=== PATIENT | female | born 1960 | race Caucasian/White ===

== ENCOUNTER 2018-01-30 14:18 | Inpatient (IN) | payer OTHER ==
[~2018-01-30] VITALS: Ht 172.7 cm; Wt 65.8 kg
[~2018-01-30 14:18] MED LIST: 'XANAX1 MG PO; BUSPAR15 MG PO; CLONAZEPAM1 MG PO; IBU800 M1 PO; IBU800 MG PO; KLONOPIN0.5 MG PO; MIRTAZAPINE15 M2 PO; OXYCODONE HCL10 M1 PO; OXYCODONE5 M1 PO; RANITIDINE HCL150 M1 PO; SEROQUEL200 MG PO; VITAMIN D50000 I3 PO; ZANTAC 150150 MG PO; ZOLOFT100 MG PO; ZOLOFT50 MG PO; ZYPREXA2.5 MG PO; ZYPREXA5 M1 PO
[2018-01-30 14:19] VITALS: BP 140/96
[2018-01-30 14:55] LABS: BASO % 0.4 % (0.0-1.0); EOS # 0.2 10*3/uL (0.0-0.4); HEMATOCRIT 47.6 % (37.0-47.0); HEMOGLOBIN 15.5 g/dl (12.0-16.0); LYMPH # 2.1 10*3/uL (1.3-4.4); MEAN CELL VOLUME 96.6 fl (81.0-99.0); MEAN CORPUSCULAR HGB 31.4 pg (27.0-31.0); MEAN CORPUSCULAR HGB CONC 32.6 g/dl (33.0-37.0); MONO # 0.6 10*3/uL (0.1-1.0); NEUT # 5.1 10*3/uL (2.3-7.9); NEUT % 64.2 % (47.0-73.0); PLATELET COUNT AUTOMATED 287 10*3/uL (130-400); RED BLOOD COUNT 4.93 10*6/uL (4.10-5.10); RED CELL DISTRI WIDTH 13.3 % (0-14.5); WHITE BLOOD COUNT 7.9 10*3/uL (4.8-10.8)
[2018-01-30 15:00] LABS: BILIRUBIN NEGATIVE (NEGATIVE); BLOOD NEGATIVE (NEGATIVE); CLARITY CLEAR (CLEAR); COLOR YELLOW (YELLOW); GLUCOSE NEGATIVE (NEGATIVE); KETONE NEGATIVE (NEGATIVE); LEUKO ESTERASE NEGATIVE (NEGATIVE); NITRITE NEGATIVE (NEGATIVE); SPECIFIC GRAVITY >= 1.030 (1.005-1.030); UROBILINOGEN 0.2 E.U./dl (0.2-1.0)
[2018-01-30 15:07] LABS: URINE AMPHETAMINES < 1000 (1000ng/ml); URINE BARBITURATES < 200 (200ng/ml); URINE BENZODIAZEPINES > 200 (200ng/ml); URINE CANNABINOIDS (THC) > 50 (50ng/ml); URINE COCAINE < 300 (300ng/ml); URINE METHADONE < 300 (300ng/ml); URINE OPIATES > 300 (300ng/ml)
[2018-01-30 15:08] LABS: ALBUMIN 4.3 gm/dl (3.1-4.5); ALKALINE PHOSPHATASE 93 U/L (45-117); BUN 12 mg/dl (7-24); CHLORIDE 107 mmol/L (98-107); CREATININE 1.09 mg/dL (0.55-1.02); POTASSIUM 3.4 mmol/L (3.5-5.1); SGOT/AST 12 IU/L (3-35); SGPT/ALT 16 U/L (12-78); SODIUM 142 mmol/L (136-145); TOTAL PROTEIN 7.9 gm/dL (6.4-8.2)
[2018-01-30 15:18] LABS: ETHYL ALCOHOL < 3.0 mg/dl (<3)
[2018-01-30 15:18] LABS: URINE PHENCYCLIDINE < 25 (25ng/ml)
[2018-01-30 15:24] LABS: CALCIUM OXALATE CRYSTALS 1+
[2018-01-30 16:00] VITALS: BP 103/52
[2018-01-30 20:00] VITALS: BP 94/57
[2018-01-31] VITALS: BP 104/56
[2018-01-31 07:49] VITALS: BP 90/52
== END 2018-01-31 11:12 | disposition home or self-care (01) | DRG 897 ==
LOC: ED 14:18 → EDHOLD 14:49 → 5E 14:49
PROVIDERS: Nurse Practitioner Family
DX: F11.23 Opioid dependence with withdrawal (principal); F13.20 Sedative, hypnotic or anxiolytic dependence, uncomplicated; F10.10 Alcohol abuse, uncomplicated; F41.9 Anxiety disorder, unspecified; G89.29 Other chronic pain; E87.6 Hypokalemia; F41.0 Panic disorder [episodic paroxysmal anxiety]; M54.9 Dorsalgia, unspecified; F17.210 Nicotine dependence, cigarettes, uncomplicated; F32.9 Major depressive disorder, single episode, unspecified; K21.9 Gastro-esophageal reflux disease without esophagitis; Z79.899 Other long term (current) drug therapy; Z71.6 Tobacco abuse counseling; Z82.49 Family history of ischemic heart disease and other diseases of the circulatory system; Z81.1 Family history of alcohol abuse and dependence; Z80.9 Family history of malignant neoplasm, unspecified; Z88.0 Allergy status to penicillin

== ENCOUNTER → 2018-03-09 | Day surgery (SDC) | payer OTHER ==
[2018-03-09] VITALS (8 sets, daily range): BP systolic 105–132; BP diastolic 31–73
[~2018-03-09] VITALS: Ht 172.7 cm; Wt 65.8 kg
[~2018-03-09] MED LIST changes: +ADVIL200 M1 PO; +DOXYCYCLINE100 M3 PO; +NAPROSYN500 MG PO; +TRAZODONE50 MG PO; +ULTRAM50 MG PO; +VISTARIL50 MG PO; +XARELTO10 MG PO
--- NOTE | ~2018-03-09 | WRIGHTHP ---
[place], [place] PATIENT HISTORY AND PHYSICAL EXAM [facility]: [id number] UN[facility] #: [id number] ROOM: DOCTOR: JAROD LILLY DPM BIRTHDATE: [birth year] DOS: 03/09/2018 LOWER EXTREMITY PHYSICAL EXAM: VASCULAR: Palpable pedal pulses, 2/4 DP and PT bilaterally. Good cap refill time. There is peripheral edema noted in the right lower extremity. There is ecchymosis noted. NEUROLOGICAL: She has intact epicritic sensation, right. MUSCULOSKELETAL: She has a grossly unstable ankle from a bimalleolar ankle fracture. DERMATOLOGICAL: There is ecchymosis. There is no evidence of fracture or blisters. Skin lines are intact. There is reduction in edema relative to speaking with the injury. ORTHOPEDIC: Bimalleolar unstable ankle fracture, right. JAROD LILLY DPM CM:HISPHYS:PATIENT HISTORY AND PHYSICAL EXAMINATION [id number] JAROD LILLY DPM 03/16/18 1658 interface
--- NOTE | ~2018-03-09 | WRIGHTHP ---
[place], [place] PATIENT HISTORY AND PHYSICAL EXAM NAME: SYLVESTER BOYD [facility] #: [id number] UNIT #: [id number] ROOM: DOCTOR: JAROD LILLY DPM BIRTHDATE: [birth year] DOS: 03/09/2018 INDICATIONS: The patient was seen after following an unstable bimalleolar fracture. She was seen and understands pros, cons, risks, benefits on the right side. With this in mind, she was consented for surgery. She understands pros, cons, risks and benefits, understands the risks involved, understands the perioperative management as well as also understands the preventive course. At this time, she is set for surgery at [facility] on 03/09/2018. We talked about the perioperative management. She understands the postoperative management as well. Appropriate site markings were performed. She agreed with this and she agreed to give consent for surgery. JAROD LILLY DPM CM:HISPHYS:PATIENT HISTORY AND PHYSICAL EXAMINATION 1634 194 JAROD LILLY DPM 03/16/18 1658 interface
--- NOTE | ~2018-03-09 | O ---
[place], [place] OPERATIVE NOTE [id number] UN[facility] #: [id number] ROOM: DOCTOR: JAROD LILLY DPM BIRTHDATE: [birth year] DOS: 03/09/2018 SURGEON: Jarod Lilly DPM ASSISTANTS: Thaddeus, PGY3 and Shree PGY2. PREOPERATIVE DIAGNOSIS: Unstable bimalleolar ankle fracture, right. POSTOPERATIVE DIAGNOSIS: Unstable bimalleolar ankle fracture, right. PROCEDURE: Open reduction and internal fixation, right ankle fracture. DESCRIPTION OF PROCEDURE: The patient was seen in the preop holding area and appropriate site marking was performed. She concurred, she agreed with the site marking and once this was done, she was brought in the OR. Once she was on the OR table, her right foot and leg were prepped and draped in usual sterile fashion, hemostasis was accomplished by the mid-thigh tourniquet, which was inflated to 300 mmHg. PROCEDURE #1: Open reduction and internal fixation of bimalleolar fracture of the right distal fibula. Attention was directed to the right fibula under fluoroscopy guidance where an incision was made, was deepened in the same plane using sharp and blunt dissection, avoiding neurovascular structure, carried down to the bone where the fracture was identified. There was noted hematoma between the distal fracture. At this point in time, with this reduced, this was clamped and this was fixated with a 3.5 interfrag compression screw. Next, a 10-hole plate was applied with locking and nonlocking screws. The distal screw was locked and nonlocking applied to lateral aspect of the fibula maintaining good anatomic alignment. At this point in time, there was temporary reduction of the medial malleolus and was checked under fluoroscopy and noted to be good anatomic alignment. PROCEDURE#2: Open reduction medial malleolar fracture. Attention was directed to the medial malleolus where incision was made, was deepened in the same plane using sharp and blunt dissection, avoiding neurovascular structure. The fragmented fracture was identified and this was reduced with a 3.5 and 4.0 solid cortical screw. At this time, a stress x-ray was done on the syndesmosis with external rotation as well as on fibula. It was noted to be intact. At this time, the area was flushed with copious amounts of sterile saline. Intraoperative fluoroscopy was used to identify fixation and good anatomic alignment. Joints noted to be well maintained in joint space and the deep tissue was closed using 0 Vicryl over the fibula and over the medial malleolus and the skin was using 2-0 nylon over the fibula and over the medial malleolus. All surgical wounds were dressed with Betadine-soaked Adaptic, 4 x 4s, and Harsha in a sterile compressive fashion. She was anesthetized with 30 mL of 0.5% Marcaine about the proximal surgical site. She tolerated the procedure and anesthesia well and left the OR with vital signs stable and vascular status intact. [place], [place] OPERATIVE NOTE NAME: BOYDSYLVESTER UNIT #: [id number] ROOM: DOCTOR: JAROD LILLY DPM BIRTHDATE: [birth year] JAROD LILLY DPM CM:OPRECORD:OPERATIVE NOTE 1634 50 JAROD LILLY DPM 03/16/18 1702 interface
--- NOTE | ~2018-03-09 | EKG ---
[place], [place] ELECTROCARDIOGRAM REPORT NAME: SYLVESTER BOYD UNIT #: [id number] ROOM: DOCTOR: EPIPHANY DRAFT REPORT BIRTHDATE: [birth year] [facility] Test Date: 2018-03-09 Test Time: 09:08:49 Pat Name: SYLVESTER BOYD Department: Room: Gender: F Resort Manager: : 1960 Requested By: JAROD LILLY Order Number: [id number] Reading MD: Ab Domínguez MD Measurements Intervals [place] Rate: 86 P: 74 ID: [id number] QRS: 62 QRSD: 86 T: 31 QT: 358 QTc: 429 Interpretive Statements Sinus rhythm Baseline wander in lead(s) V4,V6 Electronically Signed On 03-09-2018 16:22:09 PDT by Ab Domínguez MD CM:EKGRPT:ELECTROCARDIOGRAM REPORT [id number] JAROD LILLY DPM EPIPHANY DRAFT REPORT JAROD LILLY DPM
[2018-03-09 09:00] LABS: HEMATOCRIT 41.9 % (37.0-47.0); HEMOGLOBIN 14.1 g/dl (12.0-16.0)
[2018-03-09 09:13] LABS: BUN 19 mg/dl (7-24); CHLORIDE 110 mmol/L (98-107); CREATININE 0.77 mg/dL (0.55-1.02); POTASSIUM 3.8 mmol/L (3.5-5.1); SODIUM 142 mmol/L (136-145)
== END | disposition home or self-care (01) ==
LOC: SDC 03-08 14:00
PROVIDERS: Podiatrist
DX: S82.841A Displaced bimalleolar fracture of right lower leg, initial encounter for closed fracture (principal); K21.9 Gastro-esophageal reflux disease without esophagitis; G43.909 Migraine, unspecified, not intractable, without status migrainosus; M19.90 Unspecified osteoarthritis, unspecified site; G89.29 Other chronic pain; F17.210 Nicotine dependence, cigarettes, uncomplicated; F41.8 Other specified anxiety disorders; Z98.891 History of uterine scar from previous surgery; Z88.0 Allergy status to penicillin; Z79.899 Other long term (current) drug therapy; Z98.51 Tubal ligation status; X58.XXXA Exposure to other specified factors, initial encounter; Y93.89 Activity, other specified; Y92.89 Other specified places as the place of occurrence of the external cause; Y99.8 Other external cause status

== ENCOUNTER → 2018-06-08 | Outpatient (CLI) | payer OTHER | END | disposition home or self-care (01) | LOC: RAD 13:50 | DX: K52.9 Noninfective gastroenteritis and colitis, unspecified (principal) ==

== ENCOUNTER → 2018-07-08 | Outpatient (CLI) | payer OTHER | END | disposition home or self-care (01) | LOC: LAB 13:59 | PROVIDERS: Family Medicine | DX: K52.9 Noninfective gastroenteritis and colitis, unspecified (principal) ==